=== PATIENT | female | born 1950 | race Caucasian/White ===

== ENCOUNTER → 2018-04-11 07:19 | Outpatient (CLI) | payer MEDICARE, OTHER, SELFPAY ==
[2018-04-11 08:54] LABS: Alanine Aminotransferase 28 IU/L (9-52); Albumin 4.6 g/dL (3.5-5.0); Albumin Globulin Ratio 1.5 (1.0-2.8); Alkaline Phosphatase 68 U/L (38-126); Aspartate Aminotransferase 26 IU/L (14-36); BUN Creatinine Ratio 21.1 (6-22); Bilirubin Total 0.6 mg/dL (0.2-1.3); Blood Urea Nitrogen 19 mg/dL (7-17); Calcium 9.5 mg/dL (8.4-10.2); Carbon Dioxide 29 mmol/L (22-32); Chloride 101 mmol/L (98-107); Estimated Glomerular Filt Rate > 60.0 mL/min (>60); Globulin 3.1 g/dL (1.7-4.1); Glucose 89 mg/dL (80-110); HEMOLYSIS < 15 (0-50); Potassium 4.1 mmol/L (3.4-5.1); Sodium 139 mmol/L (137-145); Total Protein 7.7 g/dL (6.3-8.2)
== END ==
PROVIDERS: PCP Registered Nurse
DX: Z13.228 Encounter for screening for other metabolic disorders (principal)
CPT/HCPCS: 36415; 80053

== ENCOUNTER → 2018-05-04 10:08 | Outpatient (CLI) | payer MEDICARE, OTHER, SELFPAY ==
--- NOTE | 2018-05-04 | DI.MG.S_ITS ---
BILATERAL DIGITAL SCREENING MAMMOGRAM 3D/2D WITH CAD: 05/04/2018 CLINICAL: Routine screening. Family history of breast cancer. Comparison is made to exams dated: 05/04/2017 mammogram, 05/01/2015 mammogram, 04/28/2014 mammogram, and 03/10/2011 mammogram - [facility]. The tissue of both breasts is heterogeneously dense. This may lower the sensitivity of mammography. Current study was also evaluated with a Computer Aided Detection (CAD) system. No significant masses, calcifications, or other findings are seen in either breast. There has been no significant interval change. IMPRESSION: NEGATIVE There is no mammographic evidence of malignancy. A 1 year screening mammogram is recommended. This exam was interpreted at Station ID: [id number]. NOTE: For mammograms, a report in lay terms will be sent to the patient. Approximately 15% of breast malignancies will not be visualized mammographically. In the management of a palpable breast mass, a negative mammogram must not discourage biopsy of a clinically suspicious lesion. Electronically Signed By: Mahad robles/augusto:05/04/2018 18:37:44 letter sent: Normal Exam ACR BI-RADS Category 1: Negative 3341F
== END ==
DX: Z12.31 Encounter for screening mammogram for malignant neoplasm of breast (principal); Z80.3 Family history of malignant neoplasm of breast; Z78.0 Asymptomatic menopausal state; E07.9 Disorder of thyroid, unspecified; Z82.62 Family history of osteoporosis
CPT/HCPCS: 77063; 77067; 77080

== ENCOUNTER → 2019-08-26 16:58 | Outpatient (CLI) | payer MEDICARE, SELFPAY ==
--- NOTE | 2019-08-26 17:08 | DI.MG.S_ITS ---
Patient Name: FAIZA WEEKS date: 1950 Sex: F Attending Physician: Karthik Indications: Date: 08/26/2019 17:04 At the request of: EDWIN DE SOUZA Procedure: MM screening mammo BI BILATERAL DIGITAL SCREENING MAMMOGRAM 3D/2D WITH CAD: 08/26/2019 CLINICAL: Routine screening. Family history of breast cancer. Comparison is made to exams dated: 05/04/2018 mammogram, 05/04/2017 mammogram, and 05/01/2015 mammogram - [facility]. The tissue of both breasts is heterogeneously dense. This may lower the sensitivity of mammography. Current study was also evaluated with a Computer Aided Detection (CAD) system. No significant masses, calcifications, or other findings are seen in either breast. There has been no significant interval change. IMPRESSION: NEGATIVE There is no mammographic evidence of malignancy. A 1 year screening mammogram is recommended. This exam was interpreted at Station ID: [id number]. NOTE: For mammograms, a report in lay terms will be sent to the patient. Approximately 15% of breast malignancies will not be visualized mammographically. In the management of a palpable breast mass, a negative mammogram must not discourage biopsy of a clinically suspicious lesion. Electronically Signed By: Donna nieto/augusto:08/26/2019 17:41:04 letter sent: Normal Exam ACR BI-RADS Category 1: Negative 3341F
== END ==
DX: Z12.31 Encounter for screening mammogram for malignant neoplasm of breast (principal); Z80.3 Family history of malignant neoplasm of breast
CPT/HCPCS: 77063; 77067

== ENCOUNTER → 2019-10-09 07:51 | Outpatient (CLI) | payer MEDICARE, SELFPAY ==
[2019-10-11 08:12] LABS: Lipoprotein (a) 37.4 nmol/L (<75.0)
== END ==
DX: E78.41 Elevated Lipoprotein(a) (principal)
CPT/HCPCS: 36415; 83695

== ENCOUNTER → 2020-04-30 08:04 | Outpatient (CLI) | payer MEDICARE, SELFPAY ==
[2020-04-30 09:09] LABS: Add Manual Diff / Slide Review NO; Basophils Absolute Auto 0 /uL (0-100); Basophils Percent Auto 0.5 % (0-2); Eosinophils Absolute Auto 200 /uL (0-450); Eosinophils Percent Auto 2.6 % (2-4); Hematocrit 37.7 % (36-46); Lymphocytes Absolute Auto 1500 /uL (1100-4500); Lymphocytes Percent Auto 25.5 % (25-40); Mean Corpuscular HGB Conc 34.6 % (30-36); Mean Corpuscular Hemoglobin 31.9 PG (26-34); Mean Corpuscular Volume 92.2 fL (80-100); Monocytes Absolute Auto 400 /uL (0-900); Monocytes Percent Auto 6.9 % (3-14); Neutrophils Absolute Auto 3900 /uL (1500-7000); Neutrophils Percent Auto 64.5 % (50-75); Platelet Count 208 X10^3/uL (150-400); Red Blood Cell Count 4.09 X10^6/uL (4.0-5.2); Red Cell Distribution Width 11.6 % (11.6-14.8); White Blood Cell Count 6.1 X10^3/uL (4.5-11.0)
[2020-04-30 09:43] LABS: HEMOLYSIS < 15 (0-50); Iron 121 ug/dL (37-170)
[2020-04-30 09:46] LABS: Alanine Aminotransferase 14 IU/L (<35); Albumin 4.6 g/dL (3.5-5.0); Albumin Globulin Ratio 1.7 (1.0-2.8); Alkaline Phosphatase 72 U/L (38-126); Aspartate Aminotransferase 27 IU/L (14-36); Bilirubin Total 0.5 mg/dL (0.2-1.3); Blood Urea Nitrogen 27 mg/dL (7-17); Calcium 9.8 mg/dL (8.4-10.2); Carbon Dioxide 31 mmol/L (22-32); Chloride 99 mmol/L (98-107); Cholesterol 257 mg/dL (140-199); Estimated Glomerular Filt Rate 55.1 mL/min (>60); Globulin 2.7 g/dL (1.7-4.1); Glucose 88 mg/dL (80-110); HDL Cholesterol 87 mg/dL (40-60); HEMOLYSIS < 15 (0-50); LDL Cholesterol Calculated 136 mg/dL (<100); Potassium 3.9 mmol/L (3.4-5.1); Sodium 135 mmol/L (137-145); Total Protein 7.3 g/dL (6.3-8.2); Triglycerides 172 mg/dL (35-150)
[2020-04-30 09:54] LABS: Percent Iron Saturation 41 % (15-50); Total Iron Binding Capacity 294 ug/dL (265-497); Transferrin 269 mg/dL (206-381)
[2020-04-30 10:00] LABS: Free T4, Direct Thyroxine 1.02 ng/dL (0.78-2.19)
[2020-04-30 10:14] LABS: Thyroid Stimulating Hormone 4.88 uIU/mL (0.47-4.68)
== END ==
PROVIDERS: PCP Nurse Practitioner Family; Referring Provider Nurse Practitioner Family; Visit Provider Nurse Practitioner Family
DX: E03.9 Hypothyroidism, unspecified (principal); I10 Essential (primary) hypertension; G89.29 Other chronic pain; D50.9 Iron deficiency anemia, unspecified
CPT/HCPCS: 36415; 80053; 80061; 83540; 83550; 84439; 84443; 85025

== ENCOUNTER 2020-09-20 19:26 | Emergency (ER) | payer MEDICARE, SELFPAY ==
[2020-09-20] VITALS (8 sets, daily range): BP systolic 148–179; BP diastolic 82–99; PULSE 63–70; RESP 12–21; TEMP 36.4; O2SAT 97–99
--- NOTE | 2020-09-20 19:34 | DI.RAD.S_ITS ---
PROCEDURE: XR CHEST 1V INDICATIONS: chest pain TECHNIQUE: One view of the chest was acquired. COMPARISON: None. FINDINGS: Surgical changes and devices: None. Lungs and pleura: Lungs are clear. No pleural effusions or pneumothorax. Mediastinum: Mediastinal contours appear normal. Heart size is normal. Bones and chest wall: No suspicious bony lesions. Overlying soft tissues appear unremarkable. IMPRESSION: No acute cardiopulmonary disease. Dictated by: Donna Washburn M.D. on 09/20/2020 at 20:10 Approved by: Donna Washburn M.D. on 09/20/2020 at 20:11
--- NOTE | 2020-09-20 19:42 | PC.NURSE ---
Pt received 1 ntg in field which improved her chest pain but then it began coming back shortly after that. Pt states that she had pain with movement of her arm and thinks that with exertion it did become worse.
[2020-09-20 19:44] LABS: Add Manual Diff / Slide Review NO; Basophils Absolute Auto 0 /uL (0-100); Basophils Percent Auto 0.6 % (0-2); Eosinophils Absolute Auto 200 /uL (0-450); Eosinophils Percent Auto 2.6 % (2-4); Hematocrit 36.7 % (36-46); Hemoglobin 12.7 g/dL (12.0-16.0); Lymphocytes Absolute Auto 1800 /uL (1100-4500); Lymphocytes Percent Auto 27.5 % (25-40); Mean Corpuscular HGB Conc 34.6 % (30-36); Mean Corpuscular Hemoglobin 31.6 PG (26-34); Mean Corpuscular Volume 91.3 fL (80-100); Monocytes Absolute Auto 400 /uL (0-900); Monocytes Percent Auto 6.2 % (3-14); Neutrophils Absolute Auto 4100 /uL (1500-7000); Neutrophils Percent Auto 63.1 % (50-75); Platelet Count 208 X10^3/uL (150-400); Red Blood Cell Count 4.02 X10^6/uL (4.0-5.2); Red Cell Distribution Width 11.9 % (11.6-14.8); White Blood Cell Count 6.4 X10^3/uL (4.5-11.0)
[2020-09-20 19:54] LABS: Alanine Aminotransferase 15 IU/L (<35); Albumin 4.2 g/dL (3.5-5.0); Albumin Globulin Ratio 1.4 (1.0-2.8); Alkaline Phosphatase 73 U/L (38-126); Aspartate Aminotransferase 24 IU/L (14-36); BUN Creatinine Ratio 22.2 (6-22); Bilirubin Total 0.3 mg/dL (0.2-1.3); Blood Urea Nitrogen 20 mg/dL (7-17); Calcium 9.2 mg/dL (8.4-10.2); Carbon Dioxide 25 mmol/L (22-32); Chloride 106 mmol/L (98-107); Creatine Kinase 63 U/L (30-135); Estimated Glomerular Filt Rate > 60.0 mL/min (>60); Globulin 2.9 g/dL (1.7-4.1); Glucose 106 mg/dL (80-110); HEMOLYSIS < 15 (0-50); Lipase 96 U/L (23-300); Potassium 3.5 mmol/L (3.4-5.1); Sodium 138 mmol/L (137-145); Total Protein 7.1 g/dL (6.3-8.2)
[2020-09-20 20:06] LABS: Troponin I < 0.012 ng/mL (0.01-0.034)
--- NOTE | 2020-09-20 21:03 | ED.CHESTPAIN ---
HPI - Chest Pain General Chief Complaint: Chest Pain Stated Complaint: Palpitations Time Seen by Provider: 09/20/20 19:39 Source: patient Mode of arrival: Ambulatory Limitations: no limitations History of Present Illness HPI narrative: This is a 70-year-old female comes in with complaint of left arm pain and left posterior thoracic as well as left chest pain. Patient states started last night. Sort of mid posterior thoracic and down her left arm. She states worse with movement of her neck. Currently it is resolved but she notes that if she moves her neck a certain way it suddenly hit. She tried ice packs, heat without improvement. She did check her blood pressure and her systolic was 179. She noticed spasm in her left chest wall that she could visualize. Her and her elected to come over on the [place] is a live part-time on [facility]. While traveling she got diaphoretic and nauseated. She states that that has since resolved. She has not any shortness of breath. She has not had similar symptoms in the past. She is no longer nauseated. She describes an aching sensation down her arm, as well as her left hand has some tingling that started at the same time. She denies any issues with bowel movements. No urinary symptoms. No swelling or skin changes of her upper extremity. No changes to the skin. Patient tried some p.o. muscle relaxers and Vicodin with no improvement. She took 324 mg aspirin prior to arrival. She states her symptoms are resolving she received nitro sublingual but it was already gone before she got the nitro. She has a history of chronic low back pain, hypertension, hypothyroidism and is on hormone replacement. She denies a history of dyslipidemia or diabetes and has no prior embolic history. She is not on any anticoagulants. Surgical history includes single oophorectomy as well as a left rotator cuff repair. Mom had a CABG and valve replacement at age 50 and dad had an ID in his 70s. No tobacco 1-2 alcoholic drinks daily and no illicit. Her primary care is Dr. Alvarado in [facility]. Patient does also live [facility] in [facility]. Related Data Home Medications Medication Instructions Recorded Confirmed LEVOTHYROXINE SODIUM (SYNTHROID) 0.075 mg PO QDAY #0 06/04/12 estradiol 1 mg tablet (Estrace) 1 mg PO QDAY #0 06/04/12 Previous Rx's Medication Instructions Recorded HYDROCOD/ACET 5/500 (bulk)- 2 tab PO Q4HP #30 06/25/12 (Hydrocodon-Acetaminophen 5-500) gabapentin 300 mg capsule 300 mg PO TID #30 cap 09/20/20 (Neurontin) Allergies Allergy/AdvReac Type Severity Reaction Status Date / Time No Known Drug Allergies Allergy Verified 09/20/20 22:45 Review of Systems Review of Systems ROS Unobtainable: All systems reviewed & are unremarkable except as noted in HPI and below Patient History Family History Father Type 2 diabetes mellitus with complication Malignant neoplasm of urinary bladder, unspecified site Mother Malignant neoplasm of female breast, unspecified laterality, unspecified site of breast Exam Narrative Exam Narrative: GENERAL: Alert and oriented x three, female in mild distress. HEENT: Head normocephalic, atraumatic, EOMI, pupils reactive, face symmetric, moist mucous membranes NECK: Supple, full range of motion, no cervical, thoracic or lumbar tenderness. Full range of motion. Patient's per links are negative bilaterally. CARDIOVASCULAR: Regular rate and rhythm without murmurs, rubs or gallops. RESPIRATORY: Breath sounds equal bilaterally, no wheezes rales or rhonchi. ABDOMEN: Soft, nontender. Normoactive bowel sounds all 4 quadrants. No guarding or rebound, rigidity, no mass : No CVA tenderness EXTREMITIES: Normal range of motion, no clubbing or edema. 2+ pulse. 5/5 muscle strength. Neurovascularly intact NEUROLOGICAL: Cranial nerves II through XII grossly intact. Moving all extremities SKIN: Warm, dry, no petechiae, no rashes or lesions. Initial Vital Signs Initial Vital Signs: Vital Signs Temperature 97.5 F L 09/20/20 19:30 Pulse Rate 65 09/20/20 19:30 Respiratory Rate 15 09/20/20 19:30 Blood Pressure 179/99 H 09/20/20 19:30 Pulse Oximetry 98 09/20/20 19:30 Scores HEART Score Heart Score history: Moderately Suspicious Heart Score EKG: Non-Specific repolarization disturbance Heart Score Age: > or = 65 years old Heart Score risk factors: 1-2 risk factors Heart Score troponin: < or = to normal limit Heart Score Total: 5 Course Orders Ordered: Discontinued Medications Ketorolac Tromethamine (Ketorolac 30 Mg/Ml Vial) 15 mg IV NOW ONE Stop: 09/20/20 22:32 Last Admin: 09/20/20 22:37 Dose: 15 mg Documented by: CARLOS Reevaluation(s) Reevaluation #1: Patient's pain had returned. She had her extremity pain present while having her 2nd EKG. Time: 22:35 Vital Signs Vital signs: Vital Signs - 8 hr 09/20/20 19:30 09/20/20 19:31 09/20/20 20:00 Temperature 97.5 F L Pulse Rate 65 66 63 Respiratory Rate 15 15 13 Blood Pressure 179/99 H Pulse Oximetry 98 97 99 09/20/20 20:30 Temperature Pulse Rate 63 Respiratory Rate 16 Blood Pressure 148/82 H Pulse Oximetry 99 MDM - Chest Pain Lab Data Result diagrams: 09/20/20 19:34 09/20/20 19:34 Labs: Lab Results 09/20/20 09/20/20 09/20/20 Range/Units 19:34 19:34 21:30 WBC 6.4 (4.5-11.0) X10^3/uL RBC 4.02 (4.0-5.2) X10^6/uL Hgb 12.7 (12.0-16.0) g/dL Hct 36.7 (36-46) % MCV 91.3 (80-100) fL MCH 31.6 (26-34) PG MCHC 34.6 (30-36) % RDW 11.9 (11.6-14.8) % Plt Count 208 (150-400) X10^3/uL Neut % (Auto) 63.1 (50-75) % Lymph % (Auto) 27.5 (25-40) % Luce % (Auto) 6.2 (3-14) % Eos % (Auto) 2.6 (2-4) % Baso % (Auto) 0.6 (0-2) % Neut # (Auto) 4100 (0029-5650) /uL Lymph # (Auto) 1800 (8316-4212) /uL Luce # (Auto) 400 (0-900) /uL Eos # (Auto) 200 (0-450) /uL Baso # (Auto) 0 (0-100) /uL D-Dimer (<230) ng/mL Sodium 138 (137-145) mmol/L Potassium 3.5 (3.4-5.1) mmol/L Chloride 106 (98-107) mmol/L Carbon Dioxide 25 (22-32) mmol/L BUN 20 H (7-17) mg/dL Creatinine 0.90 (0.52-1.04) mg/dL Estimated GFR > 60.0 (>60) mL/min BUN/Creatinine Ratio 22.2 H (6-22) Glucose 106 (80-110) mg/dL Calcium 9.2 (8.4-10.2) mg/dL Total Bilirubin 0.3 (0.2-1.3) mg/dL AST 24 (14-36) IU/L ALT 15 (<35) IU/L Alkaline Phosphatase 73 (38-126) U/L Total Creatine Kinase 63 (30-135) U/L CK-MB (CK-2) TNP CK-MB (CK-2) Rel Index TNP Troponin I < 0.012 < 0.012 (0.01-0.034) ng/mL Total Protein 7.1 (6.3-8.2) g/dL Albumin 4.2 (3.5-5.0) g/dL Globulin 2.9 (1.7-4.1) g/dL Albumin/Globulin Ratio 1.4 (1.0-2.8) Lipase 96 (23-300) U/L // Range/Units 21:30 WBC (4.5-11.0) X10^3/uL RBC (4.0-5.2) X10^6/uL Hgb (12.0-16.0) g/dL Hct (36-46) % MCV (80-100) fL MCH (26-34) PG MCHC (30-36) % RDW (11.6-14.8) % Plt Count (150-400) X10^3/uL Neut % (Auto) (50-75) % Lymph % (Auto) (25-40) % Luce % (Auto) (3-14) % Eos % (Auto) (2-4) % Baso % (Auto) (0-2) % Neut # (Auto) (6869-2985) /uL Lymph # (Auto) (2193-3020) /uL Luce # (Auto) (0-900) /uL Eos # (Auto) (0-450) /uL Baso # (Auto) (0-100) /uL D-Dimer < 200 (<230) ng/mL Sodium (137-145) mmol/L Potassium (3.4-5.1) mmol/L Chloride (98-107) mmol/L Carbon Dioxide (22-32) mmol/L BUN (7-17) mg/dL Creatinine (0.52-1.04) mg/dL Estimated GFR (>60) mL/min BUN/Creatinine Ratio (6-22) Glucose (80-110) mg/dL Calcium (8.4-10.2) mg/dL Total Bilirubin (0.2-1.3) mg/dL AST (14-36) IU/L ALT (<35) IU/L Alkaline Phosphatase (38-126) U/L Total Creatine Kinase (30-135) U/L CK-MB (CK-2) CK-MB (CK-2) Rel Index Troponin I (0.01-0.034) ng/mL Total Protein (6.3-8.2) g/dL Albumin (3.5-5.0) g/dL Globulin (1.7-4.1) g/dL Albumin/Globulin Ratio (1.0-2.8) Lipase (23-300) U/L Imaging Data Chest x-ray: Radiologist's Impression: [address] [id number] ReportSigned Patient: Kisha Garg [facility]#: [id number]: 3Acct:[id number]/Sex: 70 / FDate of Service: 09/20/20Loc: EDAccession Number: [id number] Procedure: XR chest 1V Ordering Provider: Promise Vale D.O. PROCEDURE: XR CHEST 1V INDICATIONS: chest pain TECHNIQUE: One view of the chest was acquired. COMPARISON: None. FINDINGS: Surgical changes and devices: None. Lungs and pleura: Lungs are clear. No pleural effusions or pneumothorax. Mediastinum: Mediastinal contours appear normal. Heart size is normal. Bones and chest wall: No suspicious bony lesions. Overlying soft tissues appear unremarkable. IMPRESSION: No acute cardiopulmonary disease. Dictated by: Donna Washburn M.D. on 09/20/2020 at 20:10 Approved by: Donna Washburn M.D. on 09/20/2020 at 20:11 ECG Data Attestation: I personally reviewed and interpreted this ECG as follows: Prior ECG tracings: available for review Interpretation: Sinus rhythm, left anterior fascicular block. Septal infarct. Rate of 60 3p are 126 QRS 88 QTC of 460. Patient has prior EKG from 05/04/2017 which appears similar as well as even farther back in 23 trying. EKG 2. Shows a sinus rhythm with a rate of 60 7p are 134 QRS 88 QTC of 475. Septal infarct with no other new changes. No dynamic changes appreciated. Patient's EKG appears similar to it earlier today as well as prior. MDM Narrative Medical decision making narrative: This is a 70-year-old female comes in with left upper extremity pain which is also in her left posterior thoracic starting last night and into today. Patient's pain had resolved when she had arrived. She states was resolving before she receive nitro so it is unclear if that made any difference. Patient did have aspirin 324 mg which he took at home on her own. Initial troponin EKG show possible septal infarct but are negative lab hansen. Was able to obtain old EKG which is same in comparison. Patient does note that her symptoms seem to worsen when she rotates her arm and some visible spasm in her left chest earlier today making me more suspicious for musculoskeletal causes. Discussed with patient I do not feel comfortable that we can not completely rule out a cardiac cause. She does not wish to stay although she was offered observation. Initially she refused repeat troponin, D-dimer in EKG but after some discussion was agreeable. Repeat EKG and 2nd troponin and D-dimer all negative. Patient did request something for pain was given Toradol. She was given prescription for Neurontin asked to contact her primary care physician tomorrow to set up short-term cardiac testing that I am still concerned about her risk. Discharge Plan Departure Patient Disposition: Home Clinical Impression: Arm pain, left, Atypical chest pain Instructions: DI for Atypical Chest Pain Activity Restrictions/Additional Instructions: Follow up with your physician for recheck. Your labs and EKG are reassuring but you do have cardiac risk factors and I do recommend you have stress testing in the next several days. I can completely rule out a cardiac cause and observation overnight for stress to the morning would be most appropriate. Call tomorrow morning for an appointment. You may take pain medication as prescribed. There is a possibility can of a radiculopathy or an impingement of the nerve causing her symptoms as movement of her neck makes it significantly worse. This medication is most effective when taking daily. It is non-narcotic but can make you a little bit sleepy. This is a medication that can be titrated upwards and your physician can help with this. You may take your [place] with this medication. Please return for lightheadedness or passing out, new or worsening chest pain, shortness of breath, persistent vomiting, loss of sensation, inability to lift or move your extremity, discoloration such as pallor cyanosis, new swelling in your extremity or other new or concerning symptoms. Prescriptions: New gabapentin [Neurontin] 300 mg capsule 300 mg PO TID Qty: 30 RF: 0 No Action estradiol [Estrace] 1 MG tablet 1 mg PO QDAY Qty: 0 RF: 0 LEVOTHYROXINE SODIUM (SYNTHROID) 0.075 mg PO QDAY Qty: 0 RF: 0 HYDROCOD/ACET 5/500 (bulk)- (Hydrocodon-Acetaminophen 5-500) 2 tab PO Q4HP Qty: 30 RF: 0 Referrals: Germania Alvarado ARNP, DONOR SERVICES TECHNICIAN-C [Primary Care Provider] -
[2020-09-20 22:09] LABS: D Dimer < 200 ng/mL (<230)
[2020-09-20 22:18] LABS: Troponin I < 0.012 ng/mL (0.01-0.034)
[2020-09-20] MEDS: KETOROLAC 30 MG/ML VIAL 15 MG IV (22:37)
== END 2020-09-20 22:57 | disposition home or self-care (01) ==
PROVIDERS: Emergency Provider Emergency Medicine; PCP Nurse Practitioner Family
DX: M79.602 Pain in left arm (principal); R07.89 Other chest pain; R00.2 Palpitations; M54.6 Pain in thoracic spine
CPT/HCPCS: 36415; 71045; 80053; 82550; 83690; 84484; 85025; 85379; 93005; 96374; 99284; J1885

== ENCOUNTER → 2020-12-03 15:45 | Outpatient (CLI) | payer MEDICARE, SELFPAY ==
--- NOTE | 2020-12-03 15:47 | DI.MG.S_ITS ---
BILATERAL DIGITAL SCREENING MAMMOGRAM 3D/2D WITH CAD: 12/03/2020 CLINICAL: Routine screening. Family history of breast cancer. Comparison is made to exams dated: 08/26/2019 mammogram, 05/04/2018 mammogram, 05/04/2017 mammogram, 05/01/2015 mammogram, and 04/28/2014 mammogram - [facility]. The tissue of both breasts is heterogeneously dense. This may lower the sensitivity of mammography. Current study was also evaluated with a Computer Aided Detection (CAD) system. No significant masses, calcifications, or other findings are seen in either breast. There has been no significant interval change. IMPRESSION: NEGATIVE There is no mammographic evidence of malignancy. A 1 year screening mammogram is recommended. This exam was interpreted at Station ID: [id number]. NOTE: For mammograms, a report in lay terms will be sent to the patient. Approximately 15% of breast malignancies will not be visualized mammographically. In the management of a palpable breast mass, a negative mammogram must not discourage biopsy of a clinically suspicious lesion. Electronically Signed By: Jaime avina/augusto:12/03/2020 16:55:30 letter sent: Normal Exam ACR BI-RADS Category 1: Negative 3341F
== END ==
PROVIDERS: PCP Nurse Practitioner Family; Referring Provider Nurse Practitioner Family; Visit Provider Nurse Practitioner Family
DX: Z12.31 Encounter for screening mammogram for malignant neoplasm of breast (principal); Z80.3 Family history of malignant neoplasm of breast
CPT/HCPCS: 77063; 77067

== ENCOUNTER → 2021-03-18 08:36 | Outpatient (CLI) | payer MEDICARE, SELFPAY ==
--- NOTE | 2021-03-18 | DI.MRI.S_ITS ---
PROCEDURE: MR CERVICAL SPINE WO CON INDICATIONS: Radiculopathy, cervical region TECHNIQUE: Noncontrast sagittal T1 spin echo and T2 fast spin echo, sagittal STIR, foraminal oblique sagittal T2 fast spin echo, and axial gradient echo or T2 fast spin echo through the cervical spine. COMPARISON: None. FINDINGS: Image quality: Excellent. Alignment and Curvature: There is straightening of the normal cervical lordosis. No focal AP alignment abnormality is seen. Bone Marrow: Marrow demonstrates normal overall signal. Spinal Cord: Visualized spinal cord has normal size and signal. No cerebellar tonsillar herniation. Paraspinous Soft Tissues: No paravertebral masses. Prevertebral soft tissues are normal in thickness. C2-C3: The disc height is well-preserved. Loss of disc signal is seen at this level. A mild degree of generalized disc osteophyte complex is seen. There is mild left-sided facet hypertrophy seen. There is moderate left-sided and no right-sided neural foraminal narrowing. Minimal central canal narrowing is seen. C3-C4: The disc height is well-preserved. Loss of disc signal is seen at this level. Moderate generalized disc osteophyte complex is seen. There is prominent right-sided and moderate left-sided facet hypertrophy seen. There is severe right-sided and moderate to severe left-sided neural foraminal narrowing. Mild central canal narrowing is seen. C4-C5: At least moderate loss of disc height and disc signal can be seen. Moderate generalized disc osteophyte complex is seen. There is a central disc osteophyte protrusion. There is moderate right-sided and at least moderate left-sided facet hypertrophy seen. There is severe left-sided and moderate to severe right-sided neural foraminal narrowing. Moderate central canal narrowing is seen. Minimal associated mass effect can be seen upon the ventral spinal cord. C5-C6: At least moderate loss of disc height and disc signal can be seen. At least moderate disc osteophyte complex is seen, which is eccentric to the right. Uncovertebral joint hypertrophy is seen at this level. There is a central disc osteophyte extrusion seen, as on series 3, image 9. Moderate facet joint hypertrophy is seen. There is moderate to severe bilateral neural foraminal narrowing seen. Moderate to severe central canal narrowing is seen, with associated ventral cord flattening. C6-C7: At least moderate loss of disc height and disc signal can be seen. At least moderate disc osteophyte complex is seen. Uncovertebral joint hypertrophy is seen at this level. Moderate facet joint hypertrophy is seen. Moderate to severe bilateral neural foraminal narrowing can be seen, left worse than right. Moderate to severe central canal narrowing is seen, with associated ventral cord flattening. C7-T1: Moderate loss of disc height is seen. Loss of disc signal is seen. Moderate generalized disc osteophyte complex is seen. Mild to moderate facet hypertrophy is seen. Moderate bilateral neural foraminal narrowing is seen. Minimal central canal narrowing is seen. IMPRESSION: Multiple levels of relatively prominent cervical spine degenerative change are seen, which are worst at C5-C6 and C6-C7. Dictated by: Kvng Akins M.D. on 03/18/2021 at 9:29 Approved by: Kvng Akins M.D. on 03/18/2021 at 9:33
== END ==
PROVIDERS: PCP Nurse Practitioner Family; Referring Provider Nurse Practitioner Family; Visit Provider Nurse Practitioner Family
DX: M47.22 Other spondylosis with radiculopathy, cervical region (principal)
CPT/HCPCS: 72141

== ENCOUNTER → 2021-05-31 09:53 | Outpatient (CLI) | payer MEDICARE, SELFPAY ==
[2021-05-31 11:18] LABS: COVID19 -Nasal RAPID Negative (Negative)
== END ==
PROVIDERS: PCP Nurse Practitioner Family; Visit Provider Family Medicine Sleep Medicine
DX: Z20.822 Contact with and (suspected) exposure to COVID-19 (principal)
CPT/HCPCS: 87635; C9803

== ENCOUNTER 2021-06-01 10:37 | Inpatient (IN) | payer MEDICARE, SELFPAY ==
[2021-05-26 08:31] VITALS: BMI 21.2
[2021-06-01] VITALS (13 sets, daily range): BP systolic 132–179; BP diastolic 76–99; PULSE 67–89; RESP 12–21; TEMP 36–36.8; O2SAT 93–100; BMI 21.2
--- NOTE | 2021-06-01 | DI.RAD.S_ITS ---
PROCEDURE: XR CERVICAL SPINE 2V OR 3V INDICATIONS: ACDF C4-7 TECHNIQUE: 2 fluoroscopic intraoperative low resolution spot films were obtained cervical spine COMPARISON: None. FINDINGS: Low resolution fluoroscopic spot films show anterior cervical discectomy and fusion with anterior plate and screw hardware significant C4 through C7. IMPRESSION: Fluoroscopic guidance Approved by: Naveen Jones M.D. on 06/01/2021 at 15:35
[2021-06-01] MEDS: LACTATED RINGERS 1,000 ML 42 ML IV ×2 (11:30→15:08)
--- NOTE | 2021-06-01 12:03 | PM.PREOP ---
Pre-operative Note COVID-19 COVID-19 status: Negative Result date/Date tested (Pos, Neg/Pending): 06/01/21 Criteria for continued procedure: Expected advancement of disease process, Possibility delay results in more complex future surgery or treatment, Increased loss of function, Continuing or worsening of significant or severe pain, Deterioration of the patient's condition or overall health and Delay expected to result in less-positive ultimate med/surg outcome Interval Note History & Physical reviewed/Exam performed by Physician: Yes Changes to H&P: No
[2021-06-01] MEDS: CEFAZOLIN 2 GM/20 ML SYRINGE IV (13:05)
[2021-06-01] MEDS: BUPIVACAINE 0.25% (PF) 30 ML, EPINEPHrine 0.3 MG INJ (13:24)
--- NOTE | 2021-06-01 13:27 | SUR.OPER ---
Supine on padded OR bed, head on pillow, arms padded and tucked at sides, legs uncrossed, safety belt at thigh, tape over blanket over lower legs .
--- NOTE | 2021-06-01 15:48 | P.OP_ITS ---
Operative Date/Time/Diagnoses Date of procedure: 06/01/21 Time of procedure: 13:05 Pre-op diagnosis: 1. C4-5, C5-6, C6-7 spinal stenosis 2. C4-5, C5-6, C6-7 spondylosis with radiculopathy Post-op diagnosis: same Procedure & Clinicians Procedure: 1. C4-5 C5-6 C6-7 anterior cervical diskectomy and fusion 2. C4-5 C5-6 C6-7 anterior interbody cage placement 3. C4-5 C5-6 C6-7 anterior instrumentation with plate and screw placement in C4-C5-C6 and C7 vertebrae 4. Utilization of microsurgical technique and operating microscope Same procedure as scheduled: Yes Indications: Patient has been having chronic neck pain and worsening cervical radiculopathy. Patient failed multiple conservative management with worsening pain weakness and numbness in her upper extremity. Patient has been having difficulty performing activity of daily living. After discussing risks benefits of treatment options, patient elected proceed with surgery. Surgeon: Francisco Sargent Histology Teacher: Mikel Govea Click Yes if Unassisted: No Anesthesia Type: General Operative Notes Closure Type: primary Specimen(s): none sent Prosthetic devices, grafts, tissues, transplants, or devices: Globus Extend Plate, Hedron C interbody cages Applied: catheter Estimated Blood Loss (mL): 10 Blood products transfused: none Procedure in detail: Patient was seen in the preoperative area. Risks and benefits of the surgery was discussed with the patient. Operative consent was obtained and placed in the chart. Patient was then taken to the operative room. Prophylactic antibiotic was given less than 0.5 hr prior to skin incision. General anesthesia was administered. Patient was placed into a supine position on her radiolucent table. Bilateral shoulders were taped down to allow proper C-arm imaging. Anterior cervical area was prepped and draped in a sterile fashion. Time-out was performed at this time. Using lateral C-arm imaging, the level between C4 and C7 was identified and marked on patient's neck. A oblique incision from midline towards medial border of sternocleidomastoid muscle was made. The platysma muscle was incised in line with skin incision. Metzenbaum scissor was used to develop the plane between the medial border of sternocleidomastoid d and the strap muscles medially. The carotid sheath and its contents were identified and protected behind the hand- held retractor during the entire case. The plane between the carotid sheath and strap muscles was developed with Metzenbaum scissors. Dissection was made down to the level of the anterior cervical fascia. Longus colli muscle was incised on the anterior aspect of vertebral bodies bilaterally from C4-C7. Spinal needle was placed into the C4-5 disc space and confirmed with lateral C-arm imaging. Using microsurgical technique and operative microscope, anterior cervical diskectomy was performed at C4-5 C5-6 and C6-7 level. This was done by removing the disc material, removing the anterior and posterior osteophytes posterior longitudinal ligaments along with performing bilateral foraminotomies at all 3 levels. Patient was found to have severe central and foraminal stenosis at all 3 levels. Patient's stenosis was fully decompressed after decompression was completed. After the diskectomy was completed, 3 Hedron C anterior interbody cages were obtained. The cages were packed with DBM bone grafting material. One cage each along with the bone grafting material was then packed into the interbody spaces from C4-C7 with one cage into each interbody level. After the cages were placed, the anterior cervical plate was stabilized to the C4-C7 vertebrae using 2 screws at each each level. Total 8 screws were placed. After confirming placement of the hardware with AP and lateral C-arm imaging, the screws were locked into the plate using the locking mechanism and torque limiting screwdriver. After the hardware was placed and confirmed with AP and lateral C-arm imaging, the wound was irrigated with sterile normal saline. The platysma muscle and the subcutaneous tissue was closed with 2-0 Vicryl. The skin was closed with 4-0 Monocryl and Steri-Strips. Patient tolerated the procedure well. Patient was transferred recovery room in stable condition. There were no complications. Complications: none Post-operative Condition: stable Disposition: PACU Plan for aftercare: Admit to inpatient hospital
--- NOTE | 2021-06-01 15:52 | DIET.CONS2 ---
Dietary Inpatient Consultation Note Admission Date: 06/01/2021 10:37 Pt s/p cervical fusion. Please assign pt soft diet once no longer NPO. Diet: 06/01/21 09:04 NPO Diet Diet Modifications: NPO Type: NPO after Midnight Electronically Signed by: Violeta Luu 06/01/21 15:52 Clinical Dietitian [address] [address]
[2021-06-01] MEDS: fentaNYL 100 MCG/2 ML INJ IV ×2 (16:13→16:30)
[2021-06-01] MEDS: OXYCODONE IR 5 MG TABLET PO ×4 (16:14→22:19)
--- NOTE | 2021-06-01 17:01 | SUR.PHASEI ---
report given to alla winn in acute care. opportunity for questions given. return phone no. at time of report [id number]. pt going to rm 205. pt updated on plan of care and is agreeable.
[2021-06-01] MEDS: SODIUM CHLORIDE 0.9% 1,000 ML 100 ML IV (17:35)
[2021-06-01] MEDS: hydrOXYzine pamoate 25 MG CAPSULE PO (18:13)
--- NOTE | 2021-06-01 18:29 | PC.NURSE ---
1705 Patient was brought up from PACU to room 205, oriented to room and call light. Call light placed within reach. Patient ax0x3, RA, high blood pressure noted SBP to 170's per PACU. Pain still 6-7 out of 10 across her upper back/shoulders and neck, ice pack in place, and assisted to reposition in bed. Patient able to move all extremities. Soft collar in place, dressing to anterior neck in CDI. Bruising to right shoulder noted, patient states she bruises easily and is not aware of that bruise prior to surgery. Monitor for void post surgery. IV fluids initiated as ordered. Advance diet as tolerated.
[2021-06-01] MEDS: HYDROMORPHONE 0.5 MG INJ 0.2 MG IV (21:07)
[2021-06-01] MEDS: DOCUSATE 100 MG CAPSULE PO (21:08)
[2021-06-01] MEDS: SENNOSIDES 8.6 MG TABLET 17.2 MG PO (21:08)
[2021-06-01] MEDS: GABAPENTIN 300 MG CAPSULE PO (21:08)
[2021-06-01] MEDS: CEFAZOLIN 1 GM VIAL IV (21:09)
[2021-06-01] MEDS: ONDANSETRON 4 MG/2 ML INJ IV (22:19)
[2021-06-02 00:05] VITALS: BP 137/83; PULSE 92; RESP 18; TEMP 36.1; O2SAT 100
[2021-06-02] MEDS: OXYCODONE IR 5 MG TABLET PO ×3 (01:09→19:40)
[2021-06-02] MEDS: SODIUM CHLORIDE 0.9% 1,000 ML 100 ML IV ×3 (02:10→22:13)
[2021-06-02 04:45] VITALS: BP 163/94; PULSE 102; RESP 19; TEMP 36.8; O2SAT 99
[2021-06-02] MEDS: CEFAZOLIN 1 GM VIAL IV (04:54)
[2021-06-02] MEDS: LEVOTHYROXINE 75 MCG TABLET PO (05:24)
[2021-06-02] MEDS: HYDROMORPHONE 0.5 MG INJ 0.2 MG IV ×2 (05:30→12:17)
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
[2021-06-02 08:25] VITALS: BP 164/91; PULSE 90; RESP 20; TEMP 37.7; O2SAT 99
[2021-06-02] MEDS: buPROPion XL 150 MG TAB PO (09:09)
[2021-06-02] MEDS: hydroCHLOROthiazide 25 MG TABLET 12.5 MG PO (09:10)
[2021-06-02] MEDS: OXYCODONE IR 10 MG TABLET PO ×4 (09:10→22:41)
[2021-06-02] MEDS: estradioL 1 MG TABLET 0.5 MG PO (09:10)
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
--- NOTE | 2021-06-02 10:34 | ST.IPSCREEN ---
Pt underwent ACDF surgery and c/o difficulty with swallowing. Spoke with pt and her in her room. Pt was given a stool softener last evening when she arrived to her room. Based on the pt's description, the large tablet became lodged in her throat/pyriform sinus,, right side. She was unable to move the pill, even though she was able to feel it on palpation. This morning she reports pain and a need to swallow had. Observed pt eating eggs and drinking smoothie without difficulty. Discussed the potential for swallow difficulty following ACDF. Suggested to the pt that she is likely swollen in her pharynx and that the swelling should go down with time. Provided information on ACDF affect on voice/swallowing. Encouraged her to contact MD if her swallowing does not improve in 2-3 weeks. No billing for this screen
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
[2021-06-02 11:40] VITALS: BP 176/98; PULSE 84; RESP 18; TEMP 36.9; O2SAT 100
--- NOTE | 2021-06-02 13:30 | CM.DANOTE ---
Patient is a 71 yo female who was admitted on 06/01/21 for Cervical Fusion. Pt has [facility] for insurance and her PCP is Germania Alvarado. EMR was reviewed. Per Ortho PA, pt tolerated procedure well but having some pain management issues and swallow issues and ST to assess for needs. Per PT/OT, recommending safe d/c to home with spouse assist and outpt PT. SW met bedside with pt and spouse and explained role and pt confirms that they live in [place] and pt is active and independent at baseline and does not use DME and still drives. Pt denies any hx of HH or SNF and states Joel is her DPOA. Pt denies any swallow issues at baseline and states post surgery she has been having difficulty with large pills. Pt states she has been working with outpt PT for many years leading up to this surgery and preference is to return to [facility] in [facility] at discharge and does not anticipate any needs at d/c once pain managed and swallow issues resolved. Pt states spouse is retired and he typically is on his boat a lot but spouse confirms he plans to be home for assist at d/c and forego going to the boat for quite a while. Plan: SW to follow closely for pt progress with pain management and swallow towards possible d/c home tonight vs tomorrow. REBEKAH Agustin Discharge Planning/Care Management Advanced directive, confirm from FAMILY Start: 06/01/21 17:29 Freq: Q24H Status: Active Protocol: Document 06/01/21 17:29 AK (Rec: 06/01/21 17:30 [facility] [id number]) Advance Directive, confirm on record Time 17:30 Person contacted pt provided copy Copy received Yes Advanced directive available on record Yes CM Discharge Assessment Start: 06/02/21 13:28 Freq: Status: Active Protocol: Document 06/02/21 13:28 BF (Rec: 06/02/21 13:30 BF [id number]) Discharge Planning Assessment Assigned Metallurgist Process REBEKAH Mukherjee DPOA/Assigned Designee Name spouse Joel Contact Information [phone] Advance Directives? Yes Advance Directives on File No History Provided By Patient,Significant Other, Medical Record Has Patient been admitted in last 30 No days? Prior Living Arrangements House Household Members spouse Type of transporation used prior to Drives own vehicle admit Independent with ADL's Yes Is patient alert and oriented? Yes Caregiver for Another No Community Services used prior to Physical Therapy admission: Patient/Family Preference OP PT Therapy Barriers to Discharge No Discharge Plan Home Community Services Physical Therapy Transportation Arrangement Spouse bedside and confirms he can transport at d/c Referrals Initiated None needed Whiteboard Updated in Patient Room with Yes name and ext. # of Metallurgist Process Review Status In Process Please Provide Date Initial DC 06/02/21 Assessment Was Performed Next Review Type Continued Stay Review Pre-Anesthesia Assessment Start: 05/26/21 08:31 Freq: Status: Complete Protocol: Document 05/26/21 08:31 [facility] (Rec: 05/26/21 09:43 CAB [id number]) Pre-Anesthesia Assessment Preferred Name Kisha Patient Information Reviewed Via Phone Assessment Assessment Completed With Patient Comment Labs/ECG done 05/25/21 per pt, not here, COVID screen-needs to schedule Primary Care Provider Germania Alvarado Seen Specialist in Last 12 Months Yes Specialist Seen Medical Imaging Director,Emergency, Orthopedist Primary Language Stateless Material Damage Appraiser Required No Height 162.56 cm Weight 56.245 kg Body Mass Index (BMI) 21.2 Hearing Ability Normal Visual Assist Contacts Dentition Type Teeth, Natural Present,Teeth, Missing Barriers to Learning None Hx Anesthesia Reactions No Hx Family Anesthesia Reaction No Hx Malignant Hyperthermia No Hx Blood Transfusions No Anesthesia Review Requested No alcohol intake current alcohol intake frequency 0-2 drinks per day Smoking Status Never smoker Substance Use Type does not use Pain Present Pain Reported Musculoskeletal Symptoms Back Pain,Limited Range of Motion,Neck Pain,Radiating Pain into Limb History of Falling (Recent or History of No ) Patient is completely paralyzed or No completely immobile Mental Status Oriented to own ability Is patient on oxygen? No Does patient have OAKES/SOB No Hx Sleep Apnea No Currently Taking a Beta Pilar No Can You Climb a Flight of Stairs Without Yes SOB Hx Chest Pain Yes: Atypical-eval @ [facility] 09/20/20 , nothing since Hx SOB No Hx Syncope or Dizziness No Anti-Coagulant Therapy No Has a Prepared Foods Supervisor No Cardiac Testing No Hx Pacemaker/ICD No Pacemaker Rep Required? No Cardiac Clearance Received Not Applicable Diet Type At Home Regular dysphagia No Urinary Catheter Present No Hx Urinary Self Catheterization No Diabetes No Patient No Lactating No Hx Drug Resistant Organism No Presence of External or Internal Medical No Devices Have you had any close contact with No someone diagnosed with COVID-19? Received a COVID vaccine? Yes Received all doses? Yes Marital Status Lives With spouse Prior Living Arrangements House Number of Floors (Floors) Two Floors Support System Friend(s),Spouse Does the Patient Have Assistance After Yes: has physicial Surgery limitations, friends will assist w/care @ DC Patient Discharge Plan Description Return Home Comment Pt 1-3 night length of stay per surgeon Feels Safe in Current Environment Yes Been Physically Hurt or Threatened By a No Person in Current Environment Do you have thoughts of harming yourself None or others? Are you currently considering suicide? No Do you have a plan to hurt yourself or No Plan others? Do You Have Any Spiritual Beliefs That No May Affect Your HC Choices? Do You Have Any Cultural Practices That No May Affect Your HC Choices? Who Can We Speak to About Patient's Care Family, friends Identifying Code for Release of Patient Declines to issue Information Health Care Proxy/Next of Kin Eowyn (daughter) Health Care Proxy Emergency Contact Name Eowyn (daughter) Joel ( -very SAL[employer]) Emergency Contact Phone Number Eowyn: [phone] Joel: Advance Directives? Yes Advance Directives on File No Power of Fitness Club Manager No PAC Instructions Medications to take/avoid, Nasal antibiotic,No ETOH/ petroleum product on skin DOS, NPO,Post-op transportation,Pre -surgical wash,Sensory aids, Sturdy shoes/comfortable clothes,Do not bring valuables and remove jewelry
[2021-06-02 15:45] VITALS: BP 164/88; PULSE 85; RESP 16; TEMP 37.3; O2SAT 97
[2021-06-02 17:25] LABS: Creatine Kinase 401 U/L (30-135)
[2021-06-02 17:38] LABS: Troponin I < 0.012 ng/mL (0.01-0.034)
[2021-06-02 17:40] LABS: CKMB % Relative Index 0.4 % (1.5-5.0); Creatine Kinase MB 1.62 ng/mL (<2.37)
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
[2021-06-02] MEDS: ACETAMINOPHEN SUSP 650 MG/20.3 ML UDC PO (19:42)
[2021-06-02] MEDS: LORazepam 2 MG/ML INJ 0.5 MG IV (20:21)
[2021-06-02 22:58] LABS: Creatine Kinase 387 U/L (30-135)
[2021-06-02 23:11] LABS: Troponin I < 0.012 ng/mL (0.01-0.034)
[2021-06-02 23:14] LABS: CKMB % Relative Index 0.3 % (1.5-5.0); Creatine Kinase MB 1.24 ng/mL (<2.37)
[2021-06-03] MEDS: OXYCODONE IR 10 MG TABLET PO ×5 (01:28→14:09)
[2021-06-03 01:29] VITALS: BP 140/83; PULSE 82; RESP 16; TEMP 36.6; O2SAT 98
[2021-06-03] MEDS: LEVOTHYROXINE 75 MCG TABLET PO (06:32)
[2021-06-03 06:58] LABS: Add Manual Diff / Slide Review NO; Basophils Absolute Auto 0 /uL (0-100); Basophils Percent Auto 0.2 % (0-2); Eosinophils Absolute Auto 0 /uL (0-450); Eosinophils Percent Auto 0.3 % (2-4); Hematocrit 31.5 % (36-46); Hemoglobin 11.3 g/dL (12.0-16.0); Lymphocytes Absolute Auto 1100 /uL (1100-4500); Lymphocytes Percent Auto 10.9 % (25-40); Mean Corpuscular HGB Conc 35.8 % (30-36); Mean Corpuscular Hemoglobin 32.1 PG (26-34); Mean Corpuscular Volume 89.7 fL (80-100); Monocytes Absolute Auto 700 /uL (0-900); Neutrophils Absolute Auto 8200 /uL (1500-7000); Neutrophils Percent Auto 81.6 % (50-75); Platelet Count 162 X10^3/uL (150-400); Red Blood Cell Count 3.51 X10^6/uL (4.0-5.2); Red Cell Distribution Width 11.7 % (11.6-14.8); White Blood Cell Count 10.1 X10^3/uL (4.5-11.0)
[2021-06-03 07:10] LABS: Alanine Aminotransferase 12 IU/L (<35); Albumin 3.6 g/dL (3.5-5.0); Albumin Globulin Ratio 1.3 (1.0-2.8); Alkaline Phosphatase 58 U/L (38-126); Aspartate Aminotransferase 32 IU/L (14-36); BUN Creatinine Ratio 12.3 (6-22); Bilirubin Total 0.6 mg/dL (0.2-1.3); Bilirubin Unconjugated 0.7 mg/dL (0.0-1.1); Blood Urea Nitrogen 8 mg/dL (7-17); Calcium 7.7 mg/dL (8.4-10.2); Carbon Dioxide 28 mmol/L (22-32); Chloride 99 mmol/L (98-107); Cholesterol 215 mg/dL (140-199); Creatine Kinase 327 U/L (30-135); Estimated Glomerular Filt Rate > 60 mL/min (>60); Globulin 2.7 g/dL (1.7-4.1); Glucose 96 mg/dL (80-110); HDL Cholesterol 66 mg/dL (40-60); HEMOLYSIS < 15 (0-50); LDL Cholesterol Calculated 122 mg/dL (<100); Magnesium 1.9 mg/dL (1.6-2.3); Potassium 3.2 mmol/L (3.4-5.1); Sodium 133 mmol/L (137-145); Total Protein 6.3 g/dL (6.3-8.2); Triglycerides 134 mg/dL (35-150)
[2021-06-03 07:21] LABS: Troponin I < 0.012 ng/mL (0.01-0.034)
[2021-06-03 07:26] LABS: CKMB % Relative Index 0.3 % (1.5-5.0); Creatine Kinase MB 0.89 ng/mL (<2.37)
[2021-06-03] MEDS: hydroCHLOROthiazide 25 MG TABLET 12.5 MG PO (08:05)
[2021-06-03] MEDS: buPROPion XL 150 MG TAB PO (08:05)
[2021-06-03] MEDS: ACETAMINOPHEN SUSP 650 MG/20.3 ML UDC PO (08:06)
[2021-06-03 08:09] VITALS: BP 152/82; PULSE 84
[2021-06-03 09:10] VITALS: BP 148/91; PULSE 80; RESP 16; TEMP 37.3; O2SAT 96
--- NOTE | 2021-06-03 09:14 | OT.IPNOTE ---
Touched base with pt and states has been able to use the bathroom on her own. Pt not wanting to shower at this time. OT still encouraged pt to wear the soft collar and use of shower chair for home. Discharge pt for OT services.
[2021-06-03] MEDS: POTASSIUM CHLORIDE IN WATER 10 MEQ/100 ML PIGGYBACK 100 MEQ IV ×4 (11:09→15:15)
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
--- NOTE | 2021-06-03 15:35 | CM.DPC ---
DCP Discharge Home Per Ortho PA, pt medically stable to d/c home today and no identified barriers to discharge and pt wanting to go home today. Per RN, no concerns and getting ready to provide discharge instructions. Plan: Patient to d/c home today via spouse POV and outpt follow up and no SW needs at this time. REBEKAH Agustin
--- NOTE | 2021-06-03 16:52 | PC.NURSE ---
Pt discharged at 1650, escorted off floor in wheelchair, accompanied by by hospital staff. waiting outside of ED with vehicle to take pt home. IV removed, discharge teaching completed including wound care, importance of follow up appointments and new medications. Questions and concerns addressed. Pt left the floor with all belongings.
== END 2021-06-03 16:55 | disposition home or self-care (01) | DRG 473 ==
PROVIDERS: Nurse Practitioner Family; Physician Assistant; Admitting Provider Orthopaedic Surgery Orthopaedic Surgery of the Spine; PCP Nurse Practitioner Family; Referring Provider Nurse Practitioner Family; Visit Provider Orthopaedic Surgery Orthopaedic Surgery of the Spine
PROC: 0RG20A0 Fusion of 2 or more Cervical Vertebral Joints with Interbody Fusion Device, Anterior Approach, Anterior Column, Open Approach (ICD-10-PCS; principal; 2021-06-01 12:15)
DX: M47.12 Other spondylosis with myelopathy, cervical region (principal); M48.02 Spinal stenosis, cervical region; M47.22 Other spondylosis with radiculopathy, cervical region; R13.10 Dysphagia, unspecified; E03.9 Hypothyroidism, unspecified; F41.9 Anxiety disorder, unspecified; R07.0 Pain in throat; R49.0 Dysphonia; K21.9 Gastro-esophageal reflux disease without esophagitis; F32.A Depression, unspecified; I10 Essential (primary) hypertension; Z20.822 Contact with and (suspected) exposure to COVID-19
CPT/HCPCS: 36415; 72040; 76000; 80048; 80061; 80076; 82550; 82553; 82962; 83735; 84484; 85025; 87635; 93005; 97162; 97165; 97535; C9803; C1713; J0171; J0690; J1100; J1170; J2060; J2405; J2704; J3010

== ENCOUNTER → 2021-09-23 07:40 | Outpatient (CLI) | payer MEDICARE, SELFPAY ==
[2021-06-01 17:19] VITALS: BMI 21.2
[2021-09-23 08:53] LABS: Add Manual Diff / Slide Review NO; Basophils Absolute Auto 0 /uL (0-100); Basophils Percent Auto 0.8 % (0-2); Eosinophils Absolute Auto 100 /uL (0-450); Eosinophils Percent Auto 2.8 % (2-4); Hematocrit 36.5 % (36-46); Hemoglobin 12.8 g/dL (12.0-16.0); Lymphocytes Absolute Auto 1400 /uL (1100-4500); Lymphocytes Percent Auto 34.4 % (25-40); Mean Corpuscular HGB Conc 35.2 % (30-36); Mean Corpuscular Hemoglobin 31.3 PG (26-34); Monocytes Absolute Auto 300 /uL (0-900); Neutrophils Absolute Auto 2200 /uL (1500-7000); Platelet Count 219 X10^3/uL (150-400); Red Cell Distribution Width 12.3 % (11.6-14.8); White Blood Cell Count 4.1 X10^3/uL (4.5-11.0)
[2021-09-23 11:00] LABS: Alanine Aminotransferase 13 IU/L (<35); Albumin 4.4 g/dL (3.5-5.0); Albumin Globulin Ratio 1.6 (1.0-2.8); Alkaline Phosphatase 79 U/L (38-126); Aspartate Aminotransferase 25 IU/L (14-36); Bilirubin Total 0.6 mg/dL (0.2-1.3); Blood Urea Nitrogen 16 mg/dL (7-17); Calcium 9.1 mg/dL (8.4-10.2); Carbon Dioxide 30 mmol/L (22-32); Chloride 99 mmol/L (98-107); Estimated Glomerular Filt Rate > 60 mL/min (>60); Globulin 2.8 g/dL (1.7-4.1); Glucose 89 mg/dL (80-110); HEMOLYSIS < 15 (0-50); Potassium 3.9 mmol/L (3.4-5.1); Sodium 134 mmol/L (137-145); Total Protein 7.2 g/dL (6.3-8.2)
[2021-09-23 15:15] LABS: HEMOLYSIS < 15 (0-50); Iron 72 ug/dL (37-170)
[2021-09-23 15:30] LABS: Percent Iron Saturation 24 % (15-50); Total Iron Binding Capacity 295 ug/dL (265-497); Transferrin 229 mg/dL (206-381)
== END ==
PROVIDERS: PCP Nurse Practitioner Family; Referring Provider Nurse Practitioner Family; Visit Provider Nurse Practitioner Family
DX: E03.9 Hypothyroidism, unspecified (principal); D50.9 Iron deficiency anemia, unspecified
CPT/HCPCS: 36415; 80053; 83540; 83550; 84443; 85025

== ENCOUNTER → 2022-02-02 08:24 | Outpatient (CLI) | payer MEDICARE, SELFPAY ==
[2021-06-01 17:19] VITALS: BMI 21.2
--- NOTE | 2022-02-02 08:25 | DI.MG.S_ITS ---
BILATERAL DIGITAL SCREENING MAMMOGRAM 3D/2D WITH CAD: 02/02/2022 CLINICAL: Routine screening. Family history of breast cancer. Comparison is made to exams dated: 12/03/2020 mammogram, 08/26/2019 mammogram, and 05/04/2018 mammogram - [facility]. Both breasts are heterogeneously dense, which may obscure small masses (category c / 51-75% glandular tissue). Current study was also evaluated with a Computer Aided Detection (CAD) system. No significant masses, calcifications, or other findings are seen in either breast. There has been no significant interval change. IMPRESSION: NEGATIVE There is no mammographic evidence of malignancy. A 1 year screening mammogram is recommended. This exam was interpreted at Station ID: [id number]. NOTE: For mammograms, a report in lay terms will be sent to the patient. Approximately 15% of breast malignancies will not be visualized mammographically. In the management of a palpable breast mass, a negative mammogram must not discourage biopsy of a clinically suspicious lesion. Electronically Signed By: Selvin Momin M.D., jr/augusto:02/02/2022 09:26:52 letter sent: Normal Exam ACR BI-RADS Category 1: Negative 3341F
== END ==
PROVIDERS: PCP Nurse Practitioner Family; Referring Provider Nurse Practitioner Family; Visit Provider Nurse Practitioner Family
DX: Z12.31 Encounter for screening mammogram for malignant neoplasm of breast (principal); Z80.3 Family history of malignant neoplasm of breast
CPT/HCPCS: 77063; 77067

== ENCOUNTER 2022-04-25 14:36 | Emergency (ER) | payer MEDICARE, SELFPAY ==
[2021-06-01 17:19] VITALS: BMI 21.2
[2022-04-25 14:38] VITALS: BP 198/118; PULSE 79; RESP 16; TEMP 37; O2SAT 99; BMI 19.3
--- NOTE | 2022-04-25 14:46 | DI.CT.S_ITS ---
PROCEDURE: CT STROKE INDICATIONS: Positive BE-FAST, Stroke symptoms TECHNIQUE: Noncontrast 4.5 mm thick angled axial sections acquired from the foramen magnum to the vertex, with coronal reformats. For radiation dose reduction, the following was used: automated exposure control, adjustment of mA and/or kV according to patient size. COMPARISON: None. FINDINGS: Image quality: Excellent. CSF spaces: Basal cisterns are patent. No extra-axial fluid collections. Ventricles are normal in size and shape. Brain: No midline shift. No intracranial masses or hemorrhage. [place]-white matter interface is normal. Skull and face: Calvarium and visualized facial bones are intact, without suspicious lesions. Sinuses: Visualized sinuses and mastoids are clear. IMPRESSION: No acute hemorrhagic stroke. This study fulfills neurological imaging criteria for inclusion or exclusion of acute stroke therapies based on available published neurological imaging guidelines. Dr. Ricardo Damon spoke with Dr. Griffin on 04/25/2022 at 3:08 p.m. Dictated by: Ricardo Damon M.D. on 04/25/2022 at 15:06 Approved by: Ricardo Damon M.D. on 04/25/2022 at 15:09
--- NOTE | 2022-04-25 14:46 | DI.RAD.S_ITS ---
PROCEDURE: XR CHEST 1V INDICATIONS: Possible stroke TECHNIQUE: One view of the chest was acquired. COMPARISON: [facility], [facility], XR CHEST 1V, 09/20/2020, 19:49. [facility], [facility], CHEST 2 VIEW, 04/09/2016, 10:54. FINDINGS: Surgical changes and devices: None. Lungs and pleura: Lungs are clear. No pleural effusions or pneumothorax. Mediastinum: Mediastinal contours appear normal. Heart size is normal. Bones and chest wall: No suspicious bony lesions. Overlying soft tissues appear unremarkable. IMPRESSION: No acute cardiopulmonary process. Dictated by: Ricardo Damon M.D. on 04/25/2022 at 15:21 Approved by: Ricardo Damon M.D. on 04/25/2022 at 15:21
--- NOTE | 2022-04-25 14:59 | DI.CT.S_ITS ---
PROCEDURE: CT ANGIO HEAD AND NECK INDICATIONS: confusion TECHNIQUE: After the administration of intravenous contrast, 1 mm thick sections acquired from the aortic arch through the [place] of [place]. Post-contrast 4.5 mm thick sections then re-acquired from the foramen magnum to the vertex. 3-dimensional oipamcs-qksqgskoo-nreypxgfah (MIP) and/or volume rendering reformats were acquired of the central intracranial vasculature and neck separately. For radiation dose reduction, the following was used: automated exposure control, adjustment of mA and/or kV according to patient size. COMPARISON: None. FINDINGS: Image quality: Excellent. BRAIN: CSF spaces: Ventricles are normal in size and shape. Basal cisterns are patent. No extra-axial fluid collections. Brain: No midline shift. No intracranial bleeds or masses. [place]-white matter interface appears intact. Skull and face: Calvarium and facial bones appear intact, without suspicious lesions. Orbits appear normal. Sinuses: Sinuses and mastoids are clear. HEAD CT ANGIOGRAPHY: Anterior circulation: Intracranial internal carotid arteries are normal in size and flow. The flow within the paired anterior cerebral arteries is normal and symmetric. The flow within the middle cerebral arteries is normal and symmetric. The anterior communicating artery is seen. No aneurysms are seen. Posterior circulation: Visualized portions of the vertebral arteries demonstrate normal caliber, and join to form a normal appearing basilar artery. Flow within the posterior cerebral arteries is normal and symmetric. No aneurysms are seen. NECK CT ANGIOGRAPHY: Carotid system: The great vessels demonstrate a conventional anatomy as they arise from the aortic arch. The origins of the common carotid arteries appear patent. The common carotid arteries demonstrate normal caliber and courses. The bifurcation regions are both widely patent. The internal carotid arteries demonstrate normal calibers and courses. Posterior circulation: The origins of the vertebral arteries both appear widely patent. The more superior extracranial portions of both vertebral arteries also demonstrate normal courses and calibers. They join to form a normal appearing basilar artery. Soft tissues: Visualized neck soft tissues demonstrate no suspicious abnormalities. Bones: No suspicious bony lesions. Visualized cervical spine appears normally aligned. IMPRESSION: No intraluminal filling defect. Any quantitative measurements of stenosis were performed using NASCET criteria. Dictated by: Ricardo Damon M.D. on 04/25/2022 at 15:51 Approved by: Ricardo Damon M.D. on 04/25/2022 at 15:55
[2022-04-25 17:11] VITALS: O2SAT 99
[2022-04-25 17:12] VITALS: BP 200/107; PULSE 77; O2SAT 100
[2022-04-25 17:21] LABS: INR 0.9 (0.9-1.3); Prothrombin Time 10.8 SECONDS (10.1-12.7)
[2022-04-25 17:24] LABS: PTT Partial Thromboplastin Tim 31 SECONDS (26-36)
[2022-04-25 17:28] LABS: Alanine Aminotransferase 18 IU/L (<35); Albumin 4.5 g/dL (3.5-5.0); Albumin Globulin Ratio 1.4 (1.0-2.8); Alkaline Phosphatase 78 U/L (38-126); Aspartate Aminotransferase 26 IU/L (14-36); BUN Creatinine Ratio 17.9 (6-22); Bilirubin Total 0.7 mg/dL (0.2-1.3); Blood Urea Nitrogen 15 mg/dL (7-17); Calcium 9.7 mg/dL (8.4-10.2); Carbon Dioxide 30 mmol/L (22-32); Chloride 98 mmol/L (98-107); Creatine Kinase 56 U/L (30-135); Estimated Glomerular Filt Rate > 60 mL/min (>60); Globulin 3.3 g/dL (1.7-4.1); Glucose 102 mg/dL (80-110); HEMOLYSIS < 15 (0-50); Magnesium 2.2 mg/dL (1.6-2.3); Potassium 3.7 mmol/L (3.4-5.1); Sodium 136 mmol/L (137-145); Total Protein 7.8 g/dL (6.3-8.2)
[2022-04-25 17:30] VITALS: BP 211/101; PULSE 72; RESP 19; O2SAT 99
[2022-04-25 17:36] LABS: Add Manual Diff / Slide Review NO; Basophils Absolute Auto 0 /uL (0-100); Basophils Percent Auto 0.3 % (0-2); Eosinophils Absolute Auto 100 /uL (0-450); Eosinophils Percent Auto 1.5 % (2-4); Hematocrit 38.1 % (36-46); Hemoglobin 13.3 g/dL (12.0-16.0); Lymphocytes Absolute Auto 1800 /uL (1100-4500); Lymphocytes Percent Auto 29.9 % (25-40); Mean Corpuscular HGB Conc 34.9 % (30-36); Mean Corpuscular Hemoglobin 31.8 PG (26-34); Mean Corpuscular Volume 91.1 fL (80-100); Monocytes Absolute Auto 300 /uL (0-900); Monocytes Percent Auto 5.6 % (3-14); Neutrophils Absolute Auto 3700 /uL (1500-7000); Neutrophils Percent Auto 62.7 % (50-75); Platelet Count 222 X10^3/uL (150-400); Red Blood Cell Count 4.18 X10^6/uL (4.0-5.2); Red Cell Distribution Width 11.9 % (11.6-14.8); White Blood Cell Count 5.9 X10^3/uL (4.5-11.0)
[2022-04-25 17:39] LABS: Troponin I < 0.012 ng/mL (0.01-0.034)
[2022-04-25 18:00] VITALS: BP 173/100; PULSE 69; RESP 22; O2SAT 100
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
== END 2022-04-25 18:47 | disposition home or self-care (01) ==
PROVIDERS: Emergency Medicine; Emergency Provider Emergency Medicine; PCP Nurse Practitioner Family
DX: G44.009 Cluster headache syndrome, unspecified, not intractable (principal); R42 Dizziness and giddiness; I10 Essential (primary) hypertension; R41.0 Disorientation, unspecified
CPT/HCPCS: 36415; 70450; 70496; 70498; 71045; 80053; 82550; 83735; 84484; 85025; 85610; 85730; 93005; 93010; 99284; Q9967

== ENCOUNTER → 2022-05-11 09:23 | Outpatient (CLI) | payer MEDICARE, SELFPAY ==
[2021-06-01 17:19] VITALS: BMI 21.2
[2022-05-11 11:07] LABS: Cholesterol 184 mg/dL (140-199); HDL Cholesterol 84 mg/dL (40-60); LDL Cholesterol Calculated 77 mg/dL (<100); Triglycerides 115 mg/dL (35-150)
[2022-05-13 16:43] LABS: Lipoprotein (a) 32.4 nmol/L (<75.0)
== END ==
PROVIDERS: PCP Nurse Practitioner Family; Referring Provider Nurse Practitioner Family; Visit Provider Nurse Practitioner Family
DX: E78.5 Hyperlipidemia, unspecified (principal)
CPT/HCPCS: 36415; 80061; 83695

== ENCOUNTER → 2023-04-12 09:10 | Outpatient (CLI) | payer MEDICARE, SELFPAY ==
[2021-06-01 17:19] VITALS: BMI 21.2
--- NOTE | 2023-04-12 | DI.MG.S_ITS ---
BILATERAL DIGITAL SCREENING MAMMOGRAM 3D/2D WITH CAD: 04/12/2023 CLINICAL: Routine screening. Family history of breast cancer. Comparison is made to exams dated: 02/02/2022 mammogram, 12/03/2020 mammogram, and 08/26/2019 mammogram - [facility]. Both breasts are heterogeneously dense, which may obscure small masses (category c / 51-75% glandular tissue). Current study was also evaluated with a Computer Aided Detection (CAD) system. No significant masses, calcifications, or other findings are seen in either breast. There has been no significant interval change. IMPRESSION: NEGATIVE There is no mammographic evidence of malignancy. A 1 year screening mammogram is recommended. Based on the Tyrer Cuzick model (a risk assessment model) the patient's lifetime risk is 13.9% and her 10 year risk is 9.6%. According to the ACR, ACS, and NCCN guidelines, an annual breast MRI exam along with mammogram is recommended if the patient's lifetime risk is 20% or greater. This exam was interpreted at Station ID: [id number]. NOTE: For mammograms, a report in lay terms will be sent to the patient. Approximately 15% of breast malignancies will not be visualized mammographically. In the management of a palpable breast mass, a negative mammogram must not discourage biopsy of a clinically suspicious lesion. Electronically Signed By: Kristina siu/augusto:04/12/2023 09:44:03 letter sent: Normal Exam ACR BI-RADS Category 1: Negative 3341F
== END ==
PROVIDERS: PCP Nurse Practitioner Family; Referring Provider Nurse Practitioner Family; Visit Provider Nurse Practitioner Family
DX: Z12.31 Encounter for screening mammogram for malignant neoplasm of breast (principal); Z80.3 Family history of malignant neoplasm of breast; R92.333 Mammographic heterogeneous density, bilateral breasts
CPT/HCPCS: 77063; 77067

== ENCOUNTER → 2023-10-26 07:56 | Outpatient (CLI) | payer MEDICARE, SELFPAY ==
[2021-06-01 17:19] VITALS: BMI 21.2
[2023-10-26 09:24] LABS: Add Manual Diff / Slide Review NO; Basophils Absolute Auto 0 /uL (0-100); Basophils Percent Auto 0.6 % (0-2); Eosinophils Absolute Auto 100 /uL (0-450); Eosinophils Percent Auto 3.2 % (2-4); Hematocrit 37.6 % (36-46); Lymphocytes Absolute Auto 1400 /uL (1100-4500); Lymphocytes Percent Auto 34.1 % (25-40); Mean Corpuscular HGB Conc 34.5 % (30-36); Mean Corpuscular Hemoglobin 31.8 PG (26-34); Mean Corpuscular Volume 92.1 fL (80-100); Monocytes Absolute Auto 400 /uL (0-900); Monocytes Percent Auto 8.4 % (3-14); Neutrophils Absolute Auto 2300 /uL (1500-7000); Neutrophils Percent Auto 53.7 % (50-75); Platelet Count 203 X10^3/uL (150-400); Red Blood Cell Count 4.08 X10^6/uL (4.0-5.2); Red Cell Distribution Width 11.9 % (11.6-14.8); White Blood Cell Count 4.2 X10^3/uL (4.5-11.0)
[2023-10-26 10:33] LABS: Alanine Aminotransferase 14 IU/L (<35); Albumin 4.1 g/dL (3.5-5.0); Albumin Globulin Ratio 1.4 (1.0-2.8); Alkaline Phosphatase 65 U/L (38-126); Aspartate Aminotransferase 27 IU/L (14-36); BUN Creatinine Ratio 18.9 (6-22); Bilirubin Total 0.6 mg/dL (0.2-1.3); Blood Urea Nitrogen 18 mg/dL (7-17); Calcium 9.3 mg/dL (8.4-10.2); Carbon Dioxide 27 mmol/L (22-32); Chloride 100 mmol/L (98-107); Cholesterol 234 mg/dL (140-199); Estimated Glomerular Filt Rate > 60 mL/min (>60); Globulin 2.9 g/dL (1.7-4.1); Glucose 90 mg/dL (80-110); HDL Cholesterol 105 mg/dL (40-60); HEMOLYSIS < 15 (0-50); LDL Cholesterol Calculated 101 mg/dL (<100); Potassium 3.9 mmol/L (3.4-5.1); Sodium 133 mmol/L (137-145); Triglycerides 141 mg/dL (35-150)
[2023-10-26 11:09] LABS: Vitamin B12 681 pg/mL (239-931)
== END ==
PROVIDERS: PCP Nurse Practitioner Family; Referring Provider Nurse Practitioner Family; Visit Provider Nurse Practitioner Family
DX: F32.A Depression, unspecified (principal); E03.9 Hypothyroidism, unspecified; F41.9 Anxiety disorder, unspecified
CPT/HCPCS: 36415; 80053; 80061; 82607; 84443; 85025

== ENCOUNTER → 2023-12-04 08:32 | Outpatient (CLI) | payer MEDICARE, SELFPAY ==
[2021-06-01 17:19] VITALS: BMI 21.2
[2023-12-04 10:42] LABS: Thyroid Stimulating Hormone 1.72 uIU/mL (0.47-4.68)
== END ==
LOC: LAB 08:33
PROVIDERS: PCP Nurse Practitioner Family; Referring Provider Nurse Practitioner Family; Visit Provider Nurse Practitioner Family
DX: E03.9 Hypothyroidism, unspecified (principal)
CPT/HCPCS: 36415; 84443

== ENCOUNTER 2024-02-24 09:27 | Emergency (ER) | payer MEDICARE, SELFPAY ==
[2021-06-01 17:19] VITALS: BMI 21.2
[2024-02-24 09:48] VITALS: BP 162/83; PULSE 65; RESP 17; TEMP 36.6; O2SAT 100; BMI 19.7
--- NOTE | 2024-02-24 10:28 | PC.NURSE ---
Patient not in lobby at this time, Jason alled and left a message on her cell phone to see if she was going to come back to the ER.
== END 2024-02-24 10:40 | disposition left against medical advice (07) ==
PROVIDERS: Emergency Provider Emergency Medicine; PCP Nurse Practitioner Family
CPT/HCPCS: 99281

== ENCOUNTER → 2024-03-01 13:21 | Outpatient (CLI) | payer MEDICARE, SELFPAY ==
[2021-06-01 17:19] VITALS: BMI 21.2
[2024-03-01 14:44] LABS: Add Manual Diff / Slide Review NO; Basophils Absolute Auto 0 /uL (0-100); Basophils Percent Auto 0.5 % (0-2); Eosinophils Absolute Auto 100 /uL (0-450); Eosinophils Percent Auto 2.3 % (2-4); Hematocrit 37.7 % (36-46); Lymphocytes Absolute Auto 1400 /uL (1100-4500); Lymphocytes Percent Auto 23.1 % (25-40); Mean Corpuscular HGB Conc 34.4 % (30-36); Mean Corpuscular Hemoglobin 31.9 PG (26-34); Mean Corpuscular Volume 92.9 fL (80-100); Monocytes Absolute Auto 300 /uL (0-900); Monocytes Percent Auto 5.6 % (3-14); Neutrophils Absolute Auto 4200 /uL (1500-7000); Neutrophils Percent Auto 68.5 % (50-75); Platelet Count 213 X10^3/uL (150-400); Red Blood Cell Count 4.06 X10^6/uL (4.0-5.2); Red Cell Distribution Width 11.8 % (11.6-14.8); White Blood Cell Count 6.2 X10^3/uL (4.5-11.0)
[2024-03-01 14:55] LABS: BUN Creatinine Ratio 22.2 (6-22); Blood Urea Nitrogen 22 mg/dL (7-17); Calcium 9.4 mg/dL (8.4-10.2); Carbon Dioxide 30 mmol/L (22-32); Estimated Glomerular Filt Rate > 60 mL/min (>60); Glucose 124 mg/dL (80-110); HEMOLYSIS < 15 (0-50)
[2024-03-01 15:28] LABS: Chloride 101 mmol/L (98-107); Potassium 3.8 mmol/L (3.4-5.1); Sodium 135 mmol/L (137-145)
[2024-03-01 16:04] LABS: Thyroid Stimulating Hormone 0.741 uIU/mL (0.47-4.68)
== END ==
PROVIDERS: PCP Nurse Practitioner Family; Referring Provider Nurse Practitioner Family; Visit Provider Nurse Practitioner Family
DX: M54.12 Radiculopathy, cervical region (principal); R13.14 Dysphagia, pharyngoesophageal phase; R63.4 Abnormal weight loss; E03.9 Hypothyroidism, unspecified
CPT/HCPCS: 36415; 80048; 84443; 85025

== ENCOUNTER → 2024-12-16 16:07 | Outpatient (CLI) | payer MEDICARE, SELFPAY ==
[2021-06-01 17:19] VITALS: BMI 21.2
--- NOTE | 2024-12-16 16:09 | DI.MRI.S_ITS ---
PROCEDURE: MR HEAD/BRAIN WO CON INDICATIONS: Poor short term memory TECHNIQUE: Non-contrast axial T1 spin echo, axial T2 fast spin echo, sagittal and axial FLAIR, coronal T2 fast spin echo, axial gradient echo, axial diffusion and ADC through the brain. COMPARISON: [facility], CT, CT STROKE, 04/25/2022, 14:51. FINDINGS: Image quality: Excellent. CSF spaces: Ventricles appear symmetric in size and shape. Basal cisterns are patent. No extra-axial fluid collections. Brain: No intracranial bleeds or mass effects. Moderate generalized chronic small vessel ischemic change can be seen. Mild generalized brain parenchymal volume loss is seen, without abnormal regional volume loss. Brainstem appears normal. Diffusion-weighted images show no acute infarct. No chronic ischemic insults. Normal intravascular flow voids are present. Relatively prominent perivascular spaces are noted. Skull and face: Calvarial bone marrow is normal in signal. Orbits are normal. Sinuses: Sinuses and mastoids are clear. IMPRESSION: Unremarkable intracranial study for age, without a cause of the patient's presenting history identified. Dictated by: Kvng Akins M.D. on 12/16/2024 at 17:04 Approved by: Kvng Akins M.D. on 12/16/2024 at 17:06
== END ==
LOC: MRI 16:08
PROVIDERS: PCP Nurse Practitioner Family; Referring Provider Nurse Practitioner Family; Visit Provider Family Medicine
DX: R41.3 Other amnesia (principal)
CPT/HCPCS: 70551

== ENCOUNTER → 2025-01-07 16:13 | Outpatient (CLI) | payer MEDICARE, SELFPAY ==
[2021-06-01 17:19] VITALS: BMI 21.2
--- NOTE | 2025-01-07 16:14 | DI.MG.S_ITS ---
MM screening mammo BI: 01/07/2025. BI-RADS: 1 CLINICAL: 74-year old female for bilateral screening mammogram. Tyrer-Cuzick lifetime risk of 2.6%. No personal or first-degree family history of breast cancer. PRIOR EXAMS 04/12/2023, 02/02/2022, 12/03/2020, 08/26/2019, MAMMOGRAPHY TECHNIQUE: 2D and 3D (tomosynthesis) digital mammographic views obtained, with additional images as needed for full coverage. Current study was also evaluated with a Computer Aided Detection (CAD) system. DENSITY C. The breasts are heterogeneously dense, which may obscure small masses. MAMMOGRAPHY FINDINGS Bilateral: No suspicious mass, asymmetry, microcalcification, or other abnormality seen. IMPRESSION: * No evidence of malignancy. RECOMMENDATIONS Bilateral * Annual screening mammography. OVERALL ASSESSMENT CATEGORY BI-RADS-1: Negative. The [employer] recommends annual screening mammography beginning at age 40 for women with average risk of breast cancer. ELECTRONICALLY SIGNED: Rio Ellis M.D. on 01/08/2025 at 09:50:26 AM PT Interpreting Station ID: [id number]
== END ==
LOC: MAMMO 16:14
PROVIDERS: PCP Nurse Practitioner Family; Referring Provider Nurse Practitioner Family; Visit Provider Nurse Practitioner Family
DX: Z12.31 Encounter for screening mammogram for malignant neoplasm of breast (principal); R92.333 Mammographic heterogeneous density, bilateral breasts
CPT/HCPCS: 77063; 77067